=== PATIENT | male | born 1950 | race African-American/Black ===

== ENCOUNTER 2024-08-27 14:32 | Outpatient (AMB) | payer MEDICARE, MEDICAID, SELFPAY ==
--- NOTE | 2024-08-27 14:32 | A.OFFVIS_ITS ---
Vital Signs 08/27/24 14:33 Height 5 ft 5 in Weight 214 lb BMI 35.6 BP 114/57 Blood Pressure Location Rt brachial Position Sitting Pulse 46 Pulse Source Doppler Pulse Oximetry (%) 99 Oxygen Delivery Method Room Air Intake Visit Reasons: jessica Allergies No Known Allergies Allergy (Verified 08/27/24 14:39) HPI HPI jessica: Details: 73-year-old gentleman with underlying severe obstructive sleep apnea per prior study in 2007, referred for follow-up of his underlying obstructive sleep apnea. Patient stated that his CPAP machine has been broken over the last 5-6 months and he is trying to get a new one to continue his CPAP therapy. [facility] Social History (Updated 08/27/24 @ 14:40 by HARLEY Wiggins) Patient Tobacco Use Status: Never used Tobacco Review of Systems Const Reports daytime sleepiness and Reports fatigue Endo Reports fatigue Physical Exam Vital Signs: Last Vital Signs Pulse 46 08/27/24 14:33 BP 114/57 08/27/24 14:33 Pulse Ox 99 08/27/24 14:33 Oxygen Delivery Method Room Air 08/27/24 14:33 BMI result Body Mass Index 35.6 Const General: no acute distress and alert Nutritional Appearance: not obese Orientation/consciousness: Other orientation findings ( oriented) HEENT Head: Yes atraumatic Eyes General: appearance normal, both eyes and all related structures Sclerae: sclerae normal EOM: EOMs intact bilaterally Neck Neck: Yes supple Lymphatic: no lymphadenopathy noted Resp Effort & Inspection: normal respiratory effort and no use of accessory muscles Skin General skin exam: other ( warm) Extrem General: No clubbing and No cyanosis Assessment & Plan Assessment & Plan (1) JESSICA (obstructive sleep apnea): Code(s): G47.33 - Obstructive sleep apnea (adult) (pediatric) Category: Medical Plan: Underlying severe JESSICA with prior study in 2007, now needs a new machine. [place] Sleepiness Scale score of 16. Will obtain home sleep study. Orders: Orders RT home sleep study Today G47.33 - Obstructive sleep apnea (adult) (pediatric) Coding Level of Care Code New Pt Level 3 (77290) Diagnoses JESSICA (obstructive sleep apnea) G47.33
[2024-08-27 14:33] VITALS: BP 114/57; PULSE 46; O2SAT 99; BMI 35.6
--- OUTSIDE RECORDS SUMMARY | 2024-08-27 18:14 | XMS_ITS | Clinical Summary ---
Author Organization [facility] Address [address] [place] [address] Phone Care Team Providers Care Foundry Operator Name Role Phone Horace Bustillos MD Primary Care Provider [phone] Allergies Active Allergy Reactions Criticality Noted Date Comments Iodine 06/10/2014 Medications calcium citrate (CALCITRATE) 100 mg (475 mg) tablet Take by mouth. Activ e gabapentin (NEURONTIN) 300 mg capsule Take 1 capsule (300 mg total) by mouth 1 (one) time each day in the evening. 4 Active potassium chloride 20 mEq tablet extended release Take 1 tablet by mouth 1 (one) time each day. 4 Active acetaminophen (TYLENOL 8 HOUR) 650 mg 8 hr tablet Take 1 tablet (650 mg total) by mouth every 8 (eight) hours if needed for mild pain. Do not crush, chew, or split. Active sildenafiL (Viagra) 50 mg tablet Take 1 tablet (50 mg total) by mouth if needed for erectile dysfunction. 10 tablet 5 5 Active diclofenac (VOLTAREN) 1 % topical gel Apply 2 g topically 4 (four) times a day. 30 g 5 5 Active rosuvastatin (CRESTOR) 10 mg tablet TAKE 10 MG BY MOUTH AT BEDTIME. 90 tablet 1 5 Active hydroCHLOROthia zide (HYDRODIURIL) 25 mg tablet TAKE 1 TABLET BY MOUTH EVERY DAY 90 tablet 1 5 Active losartan (COZAAR) 50 mg tablet TAKE 1/2 TABLET BY MOUTH DAILY 45 tablet 1 5 Active Active Problems Problem Noted Date Diagnosed Date Lumbar disc disease 07/27/2019 Prediabetes 06/12/2018 Hyperlipemia 06/11/2014 HTN (hypertension) 06/10/2014 Morbid obesity 07/08/2013 Overview (08/09/2023): BMI 42.15 on 08/05/12. Cervical cord compression with myelopathy 2012 Overview (08/09/2023): Persistent weakness of left leg, numbness of the right leg No weakness/numbness of either arm SHERITA (obstructive sleep apnea) 05/21/2012 Overview (08/09/2023): RBMG Split Night Polysomnogram Date 04/03/2013 . Without PAP: SE 39 % SM 40 %; in REM for 0 % of this phase. RDI 63 (AHI 63), Central apneas 0; Obstructive apneas 34; Mixed apneas 0; hypopneas 4; RERAs 0; average oxygen saturation 95% (lowest 72%); PLMs 47. With PAP:SE 96 % SM 97 %; in REM for 29 % of this phase. On CPAP @ 12; RDI 2.5 (AHI 2), Central apneas 5; Obstructive apneas 0; Mixed apneas 0; hypopneas 7; RERAs 3; and, average oxygen saturation was 97%; PLMs ~6. - Obstructive Sleep Apnea - severe; mostly obstructive apneas; without sleep related hypoventilation by 2012 polysomnogram. - CPAP @ 12 corrective. Hearing loss 03/12/2012 Right leg paresthesias 03/12/2012 Encounters Date Type Department Care Team Description 08/06/2024 Telephone Adult Medicine [address] [address] Krystal Dow RN Referral ([facility] Pulmonology) 06/12/2024 9:30 AM EST Office Visit Adult Medicine [address] [address] Horace Bustillos MD Primary hypertension (Primary Dx); Prediabetes; High cholesterol; Encounter for long-term (current) use of medications; SHERITA (obstructive sleep apnea); Lumbar disc disease; Chronic pain of both knees from Last 3 Months Immunizations Name Administration Dates Next Due Pneumococcal conjugate 13 va lent (Prevnar 13, PCV13) 2mo and older 05/21/2017 Pneumococcal polysaccharide 23 valent (Pneumovax 23) 2yo and older 07/26/2014 Tdap Tetanus diptheria acell ular pertussis (Boostrix; Adacel) 7yo and older 05/21/2012 Surgical History Surgery Date Site/Laterality Comments LIPOMA RESECTION 20/12 PROCEDURE: SKIN TISSUE EXCISION(LIPOMA); COMMENT: left shoulder, [facility] OTHER SURGICAL HISTORY 2012 PROCEDURE: ---- OTHER ----; COMMENT: cervical spine surgery COLONOSCOPY ?2004 [facility]? PROCEDURE: HISTORICAL COLONOSCOPY; COMMENT: ?polyps? COLONOSCOPY 03/16/15 PROCEDURE: HISTORICAL COLONOSCOPY; COMMENT: tics; mediocre bowel prep; repeat under propofol in 5 years Medical History Medical History Date Comments Joint problem DX:Joint problem Sleep apnea DX:Sleep apnea Paresthesias in right hand DX:Pa resthesias in right hand; COMMENT: arm Paresthesia and pain of righ t extremity DX:Paresthesia and pain of r ight extremity; COMMENT: arm Right leg paresthesias 03/12/2012 DX:Right leg paresthesias Obesity 03/12/2012 DX:Obesity Family History Medical History Relation Name Comments Blindness Neg Hx Cataracts Neg Hx Glaucoma Neg Hx Macular degeneration Neg Hx Strabismus Neg Hx Relation Name Status Comments Brother lung, thraot, b rain cancer, seizure Daughter Alive healthy Father throat cancer Maternal Grandfather Maternal Grandmother Mother ca Paternal Grandfather Paternal Grandmother Sister 1 alcoholism Sister 2 breast ca Son Alive healthy Social History Tobacco Use Types Packs/Day Years Used Date Smoking Tobacco: Former Cigarettes 2 27 0 06/03/1968 - 06/03/1995 Smokeless Tobacco: Never Tobacco Cessation:Counseling Given: Not Answered Alcohol Use Standard Drinks/Week Comments Yes 0 (1 standard drink = 0.6 oz pur e alcohol) Sex and Gender Information Value Date Recorded Sex Assigned at Male 01/22/2023 9:46 AM EDT Legal Sex Male 11:06 PM EST Gender Identity Male 01/22/2023 9:46 AM EDT Sexual Orientation Straight 01/22/2023 9: 46 AM EDT Obstetrics History Last Filed Vital Signs Vital Sign Reading Time Taken Comments Blood Pressure 149/79 06/12/2024 9:16 AM EST c Pulse 51 06/12/2024 9:16 AM EST Temperature 36.7 ??C (98 ??F) 06/12/2024 9:16 AM EST Respiratory Rate 16 06/12/2024 9:16 AM EST Oxygen Saturation 98% 06/12/2024 9:16 AM EST Inhaled Oxygen Concentration - - Weight 94.3 kg (208 lb) 06/12/2024 9:16 AM EST Height 166.4 cm (5' 5.5 ) 06/12/2024 9:16 AM EST Body Mass Index 34.09 06/12/2024 9:16 AM EST Plan of Treatment Upcoming Encounters Date Type Department Care Team (Late st Contact Info) Description 12/17/2024 9:30 AM EDT Office Visit Adult Medicine [address] [phone] Horace Bustillos MD [address] [place] [phone] Health Maintenance Due Date Last Done Comments Zoster Vaccines (1 of 2) 1998 Abdominal Aortic Aneurysm (AAA) Screen 05/12/2022 Colorectal Cancer Screening: Colonoscopy 05/12/2022 03/16/2015 Medicare Annual Wellness Visit 05/12/2022 Social Influencers of Health Screening 05/12/2022 DTaP,Tdap,and Td Vaccines (2 - Td or Tdap) 05/21/2022 05/21/2012 Falls Risk Assessment 06/06/2023 06/06/2022 RSV Immunization Patients 60 + Years Old (1 - 1-dose 75+ series) 12/06/2023 COVID-19 Vaccine (3 - 2023-2 5 season) 2024 07/15/2020, 06/24/2020 Influenza Vaccine (#1) 2024 Depression Screening 06/11/2024 06/11/2023 Hypertension/CHF/CAD Annual BMP Blood Test 02/25/2025 02/26/2024 Cholesterol Screening (Lipid Panel) 02/25/2029 02/26/2024, 06/11/2023 Hepatitis C Screening Addressed 02/08/2015 Overri dden with the intention of not completing the topic Pneumococcal Vaccine: 50+ Years Completed 05/21/2017, 07/26/2014 HIB Vaccines Aged Out No longer eligi ble based on patient's age to complete this topic HPV Vaccines Aged Out No longer eligi ble based on patient's age to complete this topic Hepatitis A Vaccines Aged Out No long er eligible based on patient's age to complete this topic Hepatitis B Vaccines Aged Out No long er eligible based on patient's age to complete this topic IPV Vaccines Aged Out No longer eligi ble based on patient's age to complete this topic MMR Vaccines Aged Out No longer eligi ble based on patient's age to complete this topic Meningococcal ACWY Vaccine Aged Out N o longer eligible based on patient's age to complete this topic Meningococcal B Vacine Aged Out No lo nger eligible based on patient's age to complete this topic RSV Immunization Patients Under 20 months Aged Out No longer eligible b ased on patient's age to complete this topic Varicella Vaccines Aged Out No longer eligible based on patient's age to complete this topic Procedures Procedure Name Priority Date/Time Associated Diagnosis Comments LIPID PANEL Routine 06/11/2023 COLONOSCOPY Routine 03/16/2015 from Last 3 Months or Most Recently Relevant to Health Maintenance Results * (ABNORMAL) Lipid panel (06/11/2023) LDL/HDL Ratio 3 Triglycerides 43 mg/dL Cholesterol 184 mg/dL HDL 58 mg/dL LDL Cholesterol 118(A) <=3 mg/dL Blood Venous blood specimen / Unknown us Historical Provider LAB BLOOD ORDERABLES Ann l Result * Colonoscopy (03/16/2015) Colonoscopy negative Anatomical Region Laterality Modality Other us Historical Provider HEALTH MAINTENANCE Final Result from Last 3 Months or Most Recently Relevant to Health Maintenance Insurance [employer] Care Teams Foundry Operator Relationship Specialty Start Date End Date Horace Bustillos MD [address] [place] [phone] PCP - General Internal Medicine 11/29/14
--- OUTSIDE RECORDS SUMMARY | 2024-08-27 18:14 | XMS_ITS | Encounter Summary ---
Author Organization [facility] Address [address] [place] [address] Care Team Providers Care Cost Control Analyst Name Role Phone Horace Bustillos MD Primary Care Provider [phone] Reason for Referral * Consultation (Routine) - Closed Specialty Diagnoses / Procedures Referred By Emily talley Referred To Contact Pulmonary Disease Diagnoses SHERITA (obstructive sleep apnea) Horace Bustillos MD [address] [place] [address] Phone: tel: fax: Librado Small MD [address] [place] [phone] Phone: tel: Referral ID Status Reason Start Date Expiration Date V isits Requested Visits Authorized [id number] Closed Specialty Services Required 07/14/2024 07/14/2025 6 6 Reason for Visit * Reason Onset Date Comments Referral 08/06/2024 [facility] Pulmonology Encounter Details Date Type Department Care Team (Late st Contact Info) Description 08/06/2024 Telephone Adult Medicine [address] [phone] Krystal Dow RN Referral ([facility] Pulmonology) Social History Tobacco Use Types Packs/Day Years Used Date Smoking Tobacco: Former Cigarettes 2 27 0 06/03/1968 - 06/03/1995 Smokeless Tobacco: Never Alcohol Use Standard Drinks/Week Comments Yes 0 (1 standard drink = 0.6 oz pur e alcohol) Sex and Gender Information Value Date Recorded Sex Assigned at Male 01/22/2023 9:46 AM EDT Legal Sex Male 11:06 PM EST Gender Identity Male 01/22/2023 9:46 AM EDT Sexual Orientation Straight 01/22/2023 9: 46 AM EDT documented as of this encounter Progress Notes * Jyoti Hernandez RN - 08/11/2024 9:08 AM EDT Pt notified. * Horace Bustillos MD - 08/10/2024 6:06 PM EDT This is the 3rd referral I have signed for this * Krystal Dow RN - 08/06/2024 11:04 AM EST Referral Request: What insurance does the patient have today? [facility] Referrals cannot be processed if the insurance is not accurate. If the insurance listed above in red is NO BILLING INFORMATION FOUND FOR THIS ENCOUTNER The patients correct insurance must be obtained and registered in [facility] or their referral can not be processed. Is this a retro request? yes. If yes for what date of service do you need the retro referral? 07/14/24 Who is calling to request this referral? Incoming Fax If the caller is not the patient, what is their name? not applicable Ask the patient WHO referred them to this specialty: Not an initial visit; it is for follow up/continuation of care. Patients PCP is .pcp FIRST and LAST NAME of SPECIALIST PATIENT is seeing: Librado Small MD NPI# [id number] What specialty is this? Pulmonology DIAGNOSIS Patient is being seen for (Not a body part or a procedure): SHERITA Have you seen this SPECIALIST for this PROBLEM/DX before? If YES, when? No Have you checked REVIEW or the APPT DESK to see if this referral has already been done or has visits left? yes Is this visit: Initial Visit Address of Specialist: [address] [place], [place] [address] [place] [address] Phone # of Specialist: [phone] Fax #: (if applicable): [phone] Does patient have an appointment scheduled?: yes Date of appointment- (including a retro-request): 07/14/24 Is this appointment related to: Not MVA, worker compensation, or surgery related documented in this encounter Plan of Treatment Upcoming Encounters Date Type Department Care Team (Late st Contact Info) Description 12/17/2024 9:30 AM EDT Office Visit Adult Medicine [address] [phone] Horace Bustillos MD [address] [place] [phone] Scheduled Referrals Name Type Priority Associated Diagnoses Order Schedule Ambulatory referral to Pulmonology Outpatient Referral Routine SHERITA (obstructive sleep apnea) 1 Occurrences starting 08/10/2024 until 08/06/2025 documented as of this encounter Visit Diagnoses Diagnosis SHERITA (obstructive sleep apnea)- Primary Obstructive sleep apnea (adult) (pediatric) documented in this encounter Care Teams Cost Control Analyst Relationship Specialty Start Date End Date Horace Bustillos MD [address] [place] [phone] PCP - General Internal Medicine 11/29/14 documented as of this encounter
== END 2024-08-27 14:54 | disposition home or self-care (01) ==
LOC: HO.HPS 14:32
PROVIDERS: PCP Internal Medicine; Visit Provider Internal Medicine Pulmonary Disease
DX: G47.33 Obstructive sleep apnea (adult) (pediatric) (principal)
CPT/HCPCS: 99203

== ENCOUNTER → 2024-08-27 14:32 | Outpatient (BNVA) | payer OTHER, SELFPAY | PROVIDERS: PCP Internal Medicine; Visit Provider Internal Medicine Pulmonary Disease | DX: G47.33 Obstructive sleep apnea (adult) (pediatric) (principal); Z99.89 Dependence on other enabling machines and devices | CPT/HCPCS: 99202 ==

== ENCOUNTER → 2024-10-28 12:59 | Outpatient (REF) | payer OTHER, SELFPAY ==
--- OUTSIDE RECORDS SUMMARY | 2024-10-28 13:46 | XMS_ITS | Clinical Summary ---
Author Organization [facility] Address [address] [place] [address] Phone Care Team Providers Care Dog Track Kennel Manager Name Role Phone Horace Bustillos MD Primary Care Provider [phone] Allergies Active Allergy Reactions Criticality Noted Date [...] Hyperlipemia 06/11/2014 HTN (hypertension) 06/10/2014 Morbid obesity ([facility] V24, [facility] V28) 2013 Overview (08/09/2023): BMI 42.15 on 08/05/12. Cervical cord compression wi th myelopathy ([facility] V24, [facility] V28) 08/05/2012 Overview (08/09/2023): Persistent weakness of left leg, [...] Encounters Date Type Department Care Team Description 08/31/2024 Telephone Pulmonolgy - [address] [place] [phone] Orlando Smyth MD info request 08/06/2024 Telephone Adult Medicine [address] [phone] Krystal Dow RN Referral ([facility] Pulmonology) from Last 3 Months Immunizations Name Administration [...] ----; COMMENT: cervical spine surgery COLONOSCOPY ?2004 [facility]? PROCEDURE: HISTORICAL COLONOSCOPY; COMMENT: ?polyps? COLONOSCOPY 03/16/15 [...] 9:30 AM EDT Office Visit Adult Medicine [address] [phone] Horace Bustillos MD [address] [place] [address] Health Maintenance Due Date Last Done Comments Zoster Vaccines (1 of 2) 1998 Abdominal Aortic Aneurysm (AAA) Screen 05/12/2022 Colorectal Cancer Screening: Colonoscopy 05/12/2022 03/16/2015 Medicare Annual Wellness Visit 05/12/2022 Social Influencers of Health Screening 05/12/2022 DTaP,Tdap,and Td Vaccines (2 - Td or Tdap) 05/21/2022 05/21/2012 Falls Risk Assessment 06/06/2023 06/06/2022 RSV Immunization Adult Patients (1 - 1-dose 75+ series) 12/06/2023 COVID-19 Vaccine (3 - 2023-2 5 season) 2024 07/15/2020, 06/24/2020 Depression Screening 06/11/2024 06/11/2023 Influenza Vaccine (Season Ended) 2025 Hypertension/CHF/CAD Annual BMP Blood Test 02/25/2025 02/26/2024 [...] age to complete this topic Meningococcal B Vaccine Aged Out No l onger eligible based on patient's age to complete [...] Insurance [employer] Care Teams Dog Track Kennel Manager Relationship Specialty Start Date End Date Horace Bustillos MD [address] [place] [phone] PCP - General Internal Medicine 11/29/14
== END ==
LOC: HO.SL 12:59
PROVIDERS: PCP Internal Medicine; Visit Provider Internal Medicine Pulmonary Disease
DX: G47.33 Obstructive sleep apnea (adult) (pediatric) (principal)
CPT/HCPCS: 95806

== ENCOUNTER → 2024-10-28 13:13 | Outpatient (BNV) | payer OTHER, SELFPAY | PROVIDERS: PCP Internal Medicine; Visit Provider Internal Medicine | DX: G47.33 Obstructive sleep apnea (adult) (pediatric) (principal) | CPT/HCPCS: 95806 ==

== ENCOUNTER 2024-11-24 13:22 | Outpatient (AMB) | payer MEDICARE, MEDICAID, SELFPAY ==
--- NOTE | 2024-11-24 13:24 | A.OFFVIS_ITS ---
Vital Signs 11/24/24 13:25 11/24/24 13:30 Height 5 ft 5 in 5 ft 5 in Weight 208 lb BMI 34.6 BP 132/78 Blood Pressure Location Rt brachial Position Sitting Pulse 53 Pulse Source Pulse Oximeter Pulse Oximetry (%) 98 Oxygen Delivery Method Room Air Intake Visit Reasons: Obstructive sleep apnea Allergies No Known Allergies Allergy (Verified 08/27/24 14:39) HPI HPI Obstructive sleep apnea: Details: 73-year-old gentleman with underlying severe obstructive sleep apnea per prior study in 2007, referred for follow-up of his underlying obstructive sleep apnea. Patient stated that his CPAP machine has been broken over the last 5-6 months and he is trying to get a new one to continue his CPAP therapy. After the last office visit patient had repeat sleep study that showed underlying moderate obstructive sleep apnea with AHI of 21. [facility] Social History (Updated 08/27/24 @ 14:40 by Lavinia Ward [facility]) Patient Tobacco Use Status: Never used Tobacco Review of Systems Const Denies daytime sleepiness, Denies excessive sweating, Reports fatigue, Denies fever(s), Reports lethargy, Denies malaise, Denies night sweats, Denies snoring and Denies weight loss Eyes Denies blurry vision and Denies itchy eyes ENT Denies nasal congestion, Denies post nasal drip, Denies sinus pain, Denies sinus pressure and Denies other ( Thrush) Card Denies chest pain, Denies pedal edema, Denies dyspnea, Denies orthopnea and Denies paroxysmal nocturnal dyspnea Resp Denies cough, Denies hemoptysis, Denies excessive phlegm production, Denies dyspnea, Denies snoring and Denies wheezing GI Denies abdominal pain and Denies heartburn Musc Denies myalgias, Denies arthralgias and Denies joint swelling Skin/Breast Denies rash Neuro Denies memory loss and Denies seizure-like activity Psych Denies abnormal sleep pattern, Denies anxiety and Denies memory loss Endo Denies excessive sweating, Reports fatigue and Denies heat intolerance Cullen/Lymph Denies easy bruising Aller/Immun Denies itchy eyes, Denies seasonal rhinorrhea and Denies wheezing Physical Exam Vital Signs: Last Vital Signs Pulse 53 11/24/24 13:30 BP 132/78 11/24/24 13:30 Pulse Ox 98 11/24/24 13:30 Oxygen Delivery Method Room Air 11/24/24 13:30 BMI result Body Mass Index 34.6 Const General: no acute distress and alert Nutritional Appearance: obese Orientation/consciousness: Other orientation findings ( oriented) HEENT Head: Yes atraumatic Eyes General: appearance normal, both eyes and all related structures Sclerae: sclerae normal EOM: EOMs intact bilaterally Neck Neck: Yes supple Lymphatic: no lymphadenopathy noted Cardio Rate: regular rate Rhythm: regular rhythm Heart sounds: no gallops, no murmurs and no rubs Skin General skin exam: other ( warm) Extrem General: No clubbing, No cyanosis and No edema Assessment & Plan Assessment & Plan (1) SHERITA (obstructive sleep apnea): Code(s): G47.33 - Obstructive sleep apnea (adult) (pediatric) Category: Medical Plan: Moderate obstructive sleep apnea with AHI of 21 on recent sleep study, APAP of 6-16 cm of water ordered. Coding Level of Care Code Est Pt Level 3 (85902) Diagnoses SHERITA (obstructive sleep apnea) G47.33
[2024-11-24 13:30] VITALS: BP 132/78; PULSE 53; O2SAT 98; BMI 34.6
--- OUTSIDE RECORDS SUMMARY | 2024-11-24 15:23 | XMS_ITS | Clinical Summary ---
Author Organization [facility] Address [address] [place] [address] Phone Care Team Providers Care Yardage Control Operator Name Role Phone Horace Bustillos MD Primary Care Provider [phone] Allergies Active Allergy Reactions Criticality Noted Date [...] Hyperlipemia 06/11/2014 HTN (hypertension) 06/10/2014 Morbid obesity ([facility] V24, [facility] V28) 2013 Overview (08/09/2023): BMI 42.15 on 08/05/12. Cervical cord compression wi th myelopathy ([facility] V24, [facility] V28) 08/05/2012 Overview (08/09/2023): Persistent weakness of [...] Care Team Description 08/31/2024 Telephone Pulmonolgy - [address] [place] [phone] Orlando Smyth MD info request from Last 3 Months Immunizations Name Administration [...] ----; COMMENT: cervical spine surgery COLONOSCOPY ?2004 [facility]? PROCEDURE: HISTORICAL COLONOSCOPY; COMMENT: ?polyps? COLONOSCOPY [...] 51 06/12/2024 9:16 AM EST Temperature 36.7 C (98 F) 06/12/2024 9:16 AM EST Respiratory Rate 16 [...] 9:30 AM EDT Office Visit Adult Medicine [facility] [address] [place] [phone] Horace Bustillos MD [address] [place] [address] Health Maintenance Due Date Last Done Comments [...] Most Recently Relevant to Health Maintenance Insurance [address] [place] [address] [employer] Care Teams Yardage Control Operator Relationship Specialty Start Date End Date Horace Bustillos MD [address] [place] [phone] PCP - General Internal Medicine 11/29/14
== END 2024-11-24 13:39 | disposition home or self-care (01) ==
LOC: HO.HPS 13:23
PROVIDERS: PCP Internal Medicine; Visit Provider Internal Medicine Pulmonary Disease
DX: G47.33 Obstructive sleep apnea (adult) (pediatric) (principal)
CPT/HCPCS: 99213

== ENCOUNTER → 2024-11-24 13:22 | Outpatient (BNVA) | payer OTHER, SELFPAY | PROVIDERS: PCP Internal Medicine; Visit Provider Internal Medicine Pulmonary Disease | DX: G47.33 Obstructive sleep apnea (adult) (pediatric) (principal) | CPT/HCPCS: 99212 ==

== ENCOUNTER 2025-01-27 09:14 | Outpatient (AMB) | payer OTHER, SELFPAY ==
[2025-01-27 09:20] VITALS: BP 127/82; PULSE 45; O2SAT 98; BMI 34.3
--- NOTE | 2025-01-27 09:20 | A.OFFVIS_ITS ---
Vital Signs 01/27/25 09:20 Height 5 ft 5 in Weight 206 lb BMI 34.3 BP 127/82 Blood Pressure Location Lt brachial Position Sitting Pulse 45 L Pulse Source Pulse Oximeter Pulse Oximetry (%) 98 Oxygen Delivery Method Room Air Intake Visit Reasons: [email or web address] Allergies No Known Allergies Allergy (Verified 01/27/25 09:26) HPI HPI jessica: Details: 74-year-old gentleman with underlying severe obstructive sleep apnea per prior study in 2007, referred for follow-up of his underlying obstructive sleep apnea. Patient stated that his CPAP machine has been broken over the last 5-6 months and he is trying to get a new one to continue his CPAP therapy. After the last office visit patient had repeat sleep study that showed underlying moderate obstructive sleep apnea with AHI of 21. After the last office visit patient has been started on APAP therapy with good control of his symptoms and excellent compliance. [facility] Social History (Updated 08/27/24 @ 14:40 by Lavinia Ward Miguel) Patient Tobacco Use Status: Never used Tobacco Review of Systems Const Denies daytime sleepiness, Denies difficulty sleeping and Denies fatigue Endo Denies fatigue Physical Exam Vital Signs: Last Vital Signs Pulse 45 L 01/27/25 09:20 BP 127/82 01/27/25 09:20 Pulse Ox 98 01/27/25 09:20 Oxygen Delivery Method Room Air 01/27/25 09:20 BMI result Body Mass Index 34.3 Const General: no acute distress and alert Nutritional Appearance: obese Orientation/consciousness: Other orientation findings ( oriented) HEENT Head: Yes atraumatic Eyes General: appearance normal, both eyes and all related structures Sclerae: sclerae normal EOM: EOMs intact bilaterally Neck Neck: Yes supple Lymphatic: no lymphadenopathy noted Skin General skin exam: other ( warm) Extrem General: No clubbing, No cyanosis and No edema Assessment & Plan Assessment & Plan (1) JESSICA (obstructive sleep apnea): Code(s): G47.33 - Obstructive sleep apnea (adult) (pediatric) Category: Medical Plan: Therapy and compliance report reviewed - patient is benefitting from and is compliant with noninvasive positive pressure ventilation treatment, using it greater than 70% of the time, more than 4 hours per night. Continue current CPAP therapy. Coding Level of Care Code Est Pt Level 3 (95735) Diagnoses JESSICA (obstructive sleep apnea) G47.33
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
== END 2025-01-27 09:43 | disposition home or self-care (01) ==
LOC: HO.HPS 09:14
PROVIDERS: PCP Internal Medicine; Visit Provider Internal Medicine Pulmonary Disease
DX: G47.33 Obstructive sleep apnea (adult) (pediatric) (principal)
CPT/HCPCS: 99213

== ENCOUNTER → 2025-01-27 09:14 | Outpatient (BNVA) | payer OTHER, SELFPAY | PROVIDERS: PCP Internal Medicine; Visit Provider Internal Medicine Pulmonary Disease | DX: G47.33 Obstructive sleep apnea (adult) (pediatric) (principal) | CPT/HCPCS: 99212 ==